=== PATIENT | male | born 1940 | race Caucasian/White ===

== ENCOUNTER → 2022-07-28 14:04 | Outpatient (BNVA) | payer OTHER, SELFPAY | PROVIDERS: PCP Internal Medicine; Visit Provider Psychiatry & Neurology Neurology | DX: Z13.89 Encounter for screening for other disorder (principal) ==

== ENCOUNTER 2022-11-01 08:26 | Outpatient (AMB) | payer OTHER, SELFPAY ==
[2022-11-01 08:34] VITALS: BP 116/70; PULSE 84; O2SAT 94; BMI 26.6
--- NOTE | 2022-11-01 08:34 | A.OFFVIS_ITS ---
Intake Vital Signs 11/01/22 08:34 Height 5 ft 9 in Weight 180 lb 6 oz BMI 26.6 BP 116/70 Blood Pressure Location Rt brachial Position Sitting Pulse 84 Pulse Source Pulse Oximeter Pulse Oximetry (%) 94 Oxygen Delivery Method Room Air Intake Visit Reasons: 2m follow up Dementia-lvm Intake Note: Patient presents for 2 months follow up dementia Allergies hydroxyzine Allergy (Unknown, Verified 11/01/22 08:37) Unknown Medication List - Last Reconciled 11/01/22 by Ninfa Westbrook MD acetaminophen 500 mg PO Q6H PRN ammonium lactate 12% 1 appl topical DAILY aspirin 81 mg PO DAILY atorvastatin 20 mg PO DAILY diclofenac sodium 1% 2 grams topical QID donepezil (Aricept) 1/2 tab qd for 4 weeks then 1 tab qd orally daily; HPI HPI Comments History of Present Illness Details 81y/o [place] speaking male comes for follow up of cognitive issues that started 3 years ago. He is accompanied by his friend who helps with history.He reports its both short term and halfway memory issues.No change since last visit. He has trouble remembering names, forgets conversations sometimes, repeats questions .He misplaces things around the house. His daughter helps with housekeeping, laundry and helps with finances.He lives alone. He sleeps good. He denies depression or anxiety. No personality or behavior issues.no h/o head injury. [facility] Medical History Blurred vision, left eye BPH (benign prostatic hyperplasia) Cognitive change CVA (cerebral vascular accident) Left hemiparesis Surgical History H/O transurethral resection of prostate Hx of hernia repair Social History Alcohol intake: never Patient Tobacco Use Status: Never used Tobacco Review of Systems Neuro Reports confusion Psych Reports confusion Physical Exam Vital Signs: Last Vital Signs Pulse 84 11/01/22 08:34 BP 116/70 11/01/22 08:34 Pulse Ox 94 11/01/22 08:34 Oxygen Delivery Method Room Air 11/01/22 08:34 BMI result Body Mass Index 26.6 Const General: cooperative, healthy appearing, comfortable and confusion Nutritional Appearance: average body habitus Orientation/consciousness: confusion Limitations: physical limitations Neuro Other: weakness of left hand Left visual field defect mild left facial droop Gait- mild dragging of his left foot General: confusion Cranial nerves: Yes Nystagmus not present Coordination: [id number] test normal Assessment & Plan Assessment & Plan (1) Cognitive change: Comment: [facility] Code(s): R41.89 - Other symptoms and signs involving cognitive functions and awareness Plan MRI brain - no change from 2016 , right frontal microhaemorrhage chronic I will trial him on donepezil 5mg qd for 4 weeks then 10mg qd Medications: New donepezil (Aricept) 1/2 tab qd for 4 weeks then 1 tab qd orally daily; 30 tabs 6RF Coding Level of Care Code Est Pt Level 4 (71305) Diagnoses Cognitive change R41.89
== END 2022-11-01 08:48 | disposition home or self-care (01) ==
LOC: HO.HSMS 08:26
PROVIDERS: PCP Internal Medicine; Visit Provider Psychiatry & Neurology Neurology
DX: R41.89 Other symptoms and signs involving cognitive functions and awareness (principal)
CPT/HCPCS: 99214

== ENCOUNTER → 2022-11-01 08:26 | Outpatient (BNVA) | payer OTHER, SELFPAY | PROVIDERS: PCP Internal Medicine; Visit Provider Psychiatry & Neurology Neurology | DX: R41.89 Other symptoms and signs involving cognitive functions and awareness (principal) ==

== ENCOUNTER 2023-05-04 10:56 | Outpatient (AMB) | payer OTHER, SELFPAY ==
--- NOTE | 2023-05-04 11:03 | MHC.OFFVIS ---
Intake Vital Signs 05/04/23 11:05 Height 5 ft 9.29 in Weight 187 lb 4 oz BMI 27.4 BP 140/98 H Blood Pressure Location Lt brachial Position Sitting Pulse 83 Pulse Source Pulse Oximeter Pulse Oximetry (%) 96 Oxygen Delivery Method Room Air Intake Visit Reasons: 6m follow up Dementia-Conf w/[facility] Allergies hydroxyzine Allergy (Unknown, Verified 05/04/23 11:07) Unknown HPI HPI Comments History of Present Illness Details 82 y/o [place] speaking male comes for follow up of cognitive issues. 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 No change since last visit. He has trouble remembering names, forgets conversations sometimes, repeats questions. He misplaces things around the house. He lives alone. Pt's daughter helps with housekeeping, laundry and helps with finances. His daughter set up the medication and he takes them. His appetite is ok. He is on donepezil 10 mg daily, no side effected reported. He sleeps good. He denies depression or anxiety. No personality or behavior issues. He does wt training at home everyday. He goes to [place] three times a week. He does not drive. [facility] Medical History Cognitive change Blurred vision, left eye Left hemiparesis BPH (benign prostatic hyperplasia) CVA (cerebral vascular accident) Surgical History (Updated 05/04/23 @ 11:08 by Quita Glass) History of hip replacement H/O transurethral resection of prostate Hx of hernia repair Social History Alcohol intake: never Patient Tobacco Use Status: Never used Tobacco Review of Systems Const All systems reviewed & are unremarkable except as noted in HPI and below Neuro Reports confusion Psych Reports confusion Physical Exam Vital Signs: Last Vital Signs Pulse 83 05/04/23 11:05 BP 140/98 H 05/04/23 11:05 Pulse Ox 96 05/04/23 11:05 Oxygen Delivery Method Room Air 05/04/23 11:05 BMI result Body Mass Index 27.4 Const General: cooperative, healthy appearing, comfortable and confusion Nutritional Appearance: average body habitus Orientation/consciousness: confusion Limitations: physical limitations Neuro Other: weakness of left hand Left visual field defect mild left facial droop Gait- mild dragging of his left foot General: confusion Cranial nerves: Yes Nystagmus not present Coordination: [id number] test normal Assessment & Plan Assessment & Plan (1) Cognitive change: Comment: He did not do well on MMSE [facility] due to language barrier Code(s): R41.89 - Other symptoms and signs involving cognitive functions and awareness Plan Advised patient to continue to take donepezil 10 mg q daily. Continue to do daily exercise, social and cognitive activities. Coding Level of Care Code Est Pt Level 3 (80538) Diagnoses Cognitive change R41.89
[2023-05-04 11:05] VITALS: BP 140/98; PULSE 83; O2SAT 96; BMI 27.4
== END 2023-05-04 11:24 | disposition home or self-care (01) ==
PROVIDERS: PCP Internal Medicine; Visit Provider Nurse Practitioner Family
DX: R41.89 Other symptoms and signs involving cognitive functions and awareness (principal)
CPT/HCPCS: 99213

== ENCOUNTER → 2023-05-04 10:56 | Outpatient (BNVA) | payer OTHER, SELFPAY | PROVIDERS: PCP Internal Medicine; Visit Provider Nurse Practitioner Family | DX: R41.89 Other symptoms and signs involving cognitive functions and awareness (principal) ==